=== PATIENT | male | born 1945 | race Hispanic/Latino ===

== ENCOUNTER 2017-11-18 05:39 | Inpatient (IN) | payer MEDICARE, BC ==
[2017-11-18 05:39] VITALS: BMI 31.1
--- NOTE | 2017-11-18 05:59 | C.PDOC ---
- HPI Time Seen by Provider: 11/18/17 05:58 Chief Complaint (Nursing): Trauma Past Medical History Vital Signs: Last Vital Signs Temp 97.6 F 11/18/17 05:49 Pulse 104 H 11/18/17 05:49 Resp 18 11/18/17 05:49 BP 164/71 H 11/18/17 05:49 Pulse Ox 98 11/18/17 05:49 - Medical History PMH: Atrial Fibrillation, Benign Prostatic Hyperplasia, CHF, COPD, HTN, Hypercholesterolemia, Peripheral Edema Denies: Chronic Kidney Disease Surgical History: Pacemaker - [facility] Procedures SPINAL TAP (02/21/15) TETANUS TOXOID ADMINIST (06/20/14) - Social History Hx Tobacco Use: No Hx Alcohol Use: No Hx Substance Use: No - Immunization History Hx Tetanus Toxoid Vaccination: Yes Hx Influenza Vaccination: Yes Hx Pneumococcal Vaccination: No ED Course And Treatment O2 Sat by Pulse Oximetry: 98 Disposition Counseled Patient/Family Regarding: Studies Performed, Diagnosis - Disposition Disposition Time: 05:59
--- NOTE | 2017-11-18 05:59 | C.PDOC ---
History Of Present Illness Patient is a 72 y/o male who presents to the ED by EMS s/p falling on buttock. Patient reports to have been going to the kitchen to get water and fell; patient remembers the entire event and denies LOC. Admits to feeling a little weak prior to falling, but denies feeling any CP, SOB, or palpitations prior. EMS found patient sitting upright in kitchen. No other physical complaints at this time. 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) Current Symptoms Are (Timing): Still Present Severity: Moderate Pain Scale Rating Of: 4 Context: lumbar region Recent travel outside of the [place]: No Past Medical History Reviewed: Historical Data, Nursing Documentation, Vital Signs Vital Signs: Last Vital Signs Temp 97.6 F 11/18/17 05:49 Pulse 116 H 11/18/17 06:10 Resp 26 H 11/18/17 06:10 BP 164/71 H 11/18/17 05:49 Pulse Ox 98 11/18/17 06:20 - Medical History PMH: Atrial Fibrillation, Benign Prostatic Hyperplasia, CHF, COPD, HTN, Hypercholesterolemia, Peripheral Edema Denies: Chronic Kidney Disease Surgical History: No Surg Hx, Pacemaker - [facility] Procedures SPINAL TAP (02/21/15) TETANUS TOXOID ADMINIST (06/20/14) Family History: States: No Known Family Hx - Social History Hx Tobacco Use: No Hx Alcohol Use: No Hx Substance Use: No - Immunization History Hx Tetanus Toxoid Vaccination: Yes Hx Influenza Vaccination: Yes Hx Pneumococcal Vaccination: No Review Of Systems Constitutional: Negative for: Fever, Chills Eyes: Negative for: Vision Change ENT: Negative for: Throat Pain Cardiovascular: Negative for: Chest Pain, Palpitations Respiratory: Negative for: Shortness of Breath Gastrointestinal: Negative for: Nausea, Vomiting Musculoskeletal: Positive for: Back Pain (lumbar region) Skin: Positive for: Rash (both legs) Neurological: Positive for: Weakness (slightly weak before falling), Other (no LOC during/after falling) Psych: Negative for: Anxiety Physical Exam - Physical Exam Appears: Well, Non-toxic, No Acute Distress, Other (AA&Ox3) Skin: Warm, Dry, Other (skin changes due to venous stasis ) Head: Normacephalic Eye(s): bilateral: Normal Inspection Oral Mucosa: Moist Neck: Supple Chest: Symmetrical Cardiovascular: Rhythm Irregular (irregularly irregular), No Murmur, Other ( pacemaker on left ) Respiratory: Normal Breath Sounds, Rales (scattered at bases), No Rhonchi, No Wheezing Gastrointestinal/Abdominal: Soft, No Tenderness, Distention, Other (tympanic to percussion) Back: No CVA Tenderness Extremity: Pedal Edema (chronic, bilaterally ), Other (vascular venous stasis; severe onychomycosis bilaterally) Extremity: Bilateral: Atraumatic Pulses: Left Dorsalis Pedis: Normal, Right Dorsalis Pedis: Normal Neurological/Psych: Oriented x3, Normal Speech, Normal Cognition Gait: Unable To Assess ED Course And Treatment - Laboratory Results Result Diagrams: 11/18/17 06:15 ECG: Interpreted By Me, Viewed By Me ECG Rhythm: Atrial Fibrillation (103), R BBB, Nonspecific Changes O2 Sat by Pulse Oximetry: 98 (room air) Pulse Ox Interpretation: Normal - Radiology CXR: Interpreted by Me, Viewed By Me CXR Interpretation: Yes: Cardiomegaly, Other (chf, pacer on left) Progress Note: Lumbar spine CT, EKG, CXR, and blood work ordered. Disposition Counseled Patient/Family Regarding: Studies Performed, Diagnosis - Disposition Disposition Time: 05:59 Condition: UNKNOWN Forms: [facility] (Japanese) - Clinical Impression Clinical Impression: Fall, CHF (congestive heart failure), Leg edema - Scribe Statement The provider has reviewed the documentation as recorded by the Scribe Romina Ashby All medical record entries made by the Scribe were at my direction and personally dictated by me. I have reviewed the chart and agree that the record accurately reflects my personal performance of the history, physical exam, medical decision making, and the department course for this patient. I have also personally directed, reviewed, and agree with the discharge instructions and disposition. Physician Patient Turnover Patient Signed Over To: Basilio Simmons Handoff Comments: pending labs, ct lumbar and dispo
[2017-11-18 06:19] LABS: BASO # 0.1 K/uL (0.0-0.2); BASO % 1.1 % (0.0-2.0); EOS # 0.1 K/uL (0.0-0.7); EOS % 1.4 % (0.0-4.0); HEMATOCRIT 33.5 % (35.0-51.0); LYMPH # 1.3 K/uL (1.0-4.3); LYMPH % 18.9 % (20.0-40.0); MEAN CELL VOLUME 84.9 fL (80.0-94.0); MEAN CORPUSCULAR HEMOGLOBIN 26.7 pg (27.0-31.0); MEAN CORPUSCULAR HGB CONC 31.4 g/dL (33.0-37.0); MEAN PLATELET VOLUME 8.5 fL (7.2-11.7); MONO % 14.4 % (0.0-10.0); RED CELL DISTRIBUTION WIDTH 18.5 % (11.5-14.5); WHITE BLOOD COUNT 6.8 K/uL (4.8-10.8)
[2017-11-18 06:27] LABS: INR 1.4
[2017-11-18 06:35] LABS: ALB/GLOB RATIO 0.7 (1.0-2.1); BILIRUBIN,TOTAL 0.8 mg/dL (0.2-1.3); CALCIUM 8.3 mg/dl (8.6-10.4); GFR AFRICAN-AMERICAN > 60; GLUCOSE,RANDOM 78 mg/dL (75-110); TOTAL PROTEIN 8.2 g/dL (6.3-8.3)
[2017-11-18 06:55] LABS: ALKALINE PHOSPHATASE 150 U/L (38-126); ALT/SGPT 30 U/L (21-72); AST/SGOT 24 U/L (17-59); BLOOD UREA NITROGEN 20 mg/dL (9-20); CARBON DIOXIDE 31 mmol/L (22-30); CHLORIDE 101 mmol/L (98-107); POTASSIUM 4.6 mmol/L (3.6-5.2); SODIUM 137 mmol/L (132-148)
--- NOTE | 2017-11-18 08:15 | RAD ---
PROCEDURE: CHEST RADIOGRAPH, 1 VIEW HISTORY: SOB COMPARISON: 10/05/2017 FINDINGS: LUNGS: No consolidation PLEURA: No pneumothorax or pleural fluid seen. CARDIOVASCULAR: Cardiomegaly. Position/ configuration of pacemaker Satisfactory. Central pulmonary venous congestion suggested-similar OSSEOUS STRUCTURES: Bilateral shoulder arthrosis VISUALIZED UPPER ABDOMEN: Normal. OTHER FINDINGS: Ventriculoperitoneal shunt catheter projects over right reinier thorax -as before IMPRESSION: Cardiomegaly and mild central pulmonary venous congestion-similar
--- NOTE | 2017-11-18 09:22 | CT ---
PROCEDURE: CT Lumbar Spine without contrast HISTORY: fall COMPARISON: None. TECHNIQUE: Axial computed tomography images were obtained of the lumbar spine without the use of intravenous contrast. Coronal and sagittal reformatted images were created and reviewed. Radiation dose: Total exam DLP = 2062.93 mGy-cm. This CT exam was performed using one or more of the following dose reduction techniques: Automated exposure control, adjustment of the mA and/or kV according to patient size, and/or use of iterative reconstruction technique. FINDINGS: VERTEBRAE: Upper lumbar curvature is slightly straightened. Chronic compression fractures of T11 and L1 are identified which are moderate and severe respectively bladder reiterated compared to the prior chest CT examination dated 09/07/2014. No interval spondylolisthesis or fracture identified at this time. Gross spondylosis appreciated L5-S1 and is less prominent at the remaining lumbar levels. Diffuse osteopenia suggests osteoporosis. The visualized prevertebral paraspinal soft tissues appear diffusely unremarkable. A subtle levoscoliotic lumbar spinal deformity is appreciated. DISCS/SPINAL CANAL/NEURAL FORAMINA: L1-2: A mild central canal stenosis results from a disc osteophyte complex combined with facet joint degenerative arthropathy. Degenerative neural foraminal stenoses are moderate to severe at the right and mild at the left. L2-3: A mild central stenosis results from gross facet joint degenerative arthropathy and limited disc bulging with moderate degenerative bilateral neural foraminal stenosis present. L3-4: A moderate central stenosis results from a disc osteophyte complex combining with prominent facet joint degenerative arthrosis. Moderate bilateral degenerative neural foraminal stenoses are identified. L4-5: An additional moderate central canal stenosis results from disc bulging combining with gross facet joint degenerative arthropathy. Moderate bilateral degenerative neural foraminal stenoses are identify. L5-S1: Facet joint degenerative changes combined with posterior osteophytic ridging encroaching the lateral recesses without generalized central canal stenosis. PARASPINAL SOFT TISSUES: Unremarkable. OTHER FINDINGS: No large right adrenal nodules incidentally identified measuring 5.8 x 3.3 x 4.5 cm not simply changed in size in appearance dating back to 09/07/[address] likely representing a benign adrenal adenoma. It measures 20- 25 Hounsfield units and confirmation MRI is recommended without contrast but including chemical shift to exclude potential malignancy though this is though quite unlikely. IMPRESSION: 1. Multilevel degenerative central canal stenoses are identified which are seen worst at L3-4 and L4-5 for moderate degenerative central canal stenoses are identified. 2. Multilevel degenerative neural foraminal stenoses are also identified. 3. Subtle levoscoliosis of the lumbar spine. 4. Incidental large right adrenal mass up likely representing a benign adrenal adenoma. Follow-up MRI without contrast is advised if not already proven benign.
[2017-11-18] MEDS ORDERED: diltiaZEM 300 mg/24 Hours CD Cap PO SCH (10:30)
[2017-11-18] MEDS: diltiaZEM 300 mg/24 Hours CD Cap PO SCH (17:25)
[2017-11-18] MEDS: Digoxin 250 mcg (0.25 mg) Tab PO SCH (17:25)
[2017-11-18] MEDS: Pantoprazole 20 mg EC Tab PO SCH (17:25)
--- NOTE | 2017-11-18 23:52 | HP ---
HISTORY OF PRESENT ILLNESS: This is a 72-year-old gentleman who was brought in with a history of dizzy spell, fell and hurt his back. He was found to be in rapid AFib also and was admitted. The patient has a longstanding history of COPD, congestive heart failure, atrial fibrillation and several methods tried and has now pacemaker. He has been admitted on several occasions for the similar complaints in the past. EP evaluation has been done and followed up closely by Dr. Bynum. MEDICATIONS AT HOME: Include Cardizem CD 300 mg one a day, digoxin 0.25 mg, Aldactone 25 mg, Crestor 5 mg, Lasix 40 mg, Toprol 100 mg twice a day, Protonix 20 mg, Flomax, Singulair 10 mg and baby aspirin 81 mg. He is also on Pradaxa 150 mg twice a day. Compliance with the medication has been questionable. He has been told several times by social service; however, medications at home he has been poor compliant on several occasions. Medication Lasix he has been taking twice a day. PERSONAL HISTORY: Half a pack per day smoker for more than 30 years. No EtOH abuse. ALLERGIES: DENIED. FAMILY HISTORY: Negative for premature coronary artery disease. . Lives with his and his son. REVIEW OF SYSTEMS: CONSTITUTIONAL: Generalized weakness is noted, moderate to severe fatigue. Able to walk less than a block with the shortness of breath. No dizziness. EYES: No visual disturbances. NECK: No swollen glands. No thyroid enlargement. RESPIRATORY: Cough and wheezing. CARDIAC: Denies any chest pain. Shortness of breath occasionally at rest and on minimal exertion. Edema, hypertension, chronic atrial fibrillation. GASTROINTESTINAL: Negative for abdominal pain. Has had abdominal pain and diverticulitis in the past. Refuses colonoscopy. GENITOURINARY: Negative for hematuria. MUSCULOSKELETAL: Positive for arthritis and knee pains. VASCULAR SYSTEM: No history of DVT. NEUROLOGICAL: No TIAs. No CVAs. Memory loss is noted. PAST MEDICAL HISTORY: Admitted of multiple occasions for congestive heart failure, atrial fibrillation, has a permanent pacemaker. PHYSICAL EXAMINATION: GENERAL: Elderly gentleman, who is conscious, alert, well-oriented, chronically sick-looking, in no acute distress. VITAL SIGNS: He is 6 feet and weighs about 200 pounds. His blood pressure is 122/70, heart rate of 120 and irregular, respiratory rate of 24, temperature of 97. HEENT: Mouth is normocephalic. Complete dentures. NECK: Supple. No thyroid enlargement. LUNGS: Shows coarse rhonchi all over the lung marin. CARDIAC: PMI is not localized. Heart sounds are distant and tachycardic. No definite gallops or murmurs. ABDOMEN: Soft, nontender. EXTREMITIES: No cyanosis or clubbing. 1+ edema. All nails are and poor hygiene on the foot. Distal pulses could not be felt. NEUROLOGICALLY: The patient is awake, alert and oriented x3. LABORATORY DATA: Workup in the ER which was discussed with the ER physician: CT of the head was unremarkable. Osteoporosis and arthritic changes in the lumbar spine, but no fracture. EKG had rapid AFib. Chest x-ray had congestion. IMPRESSION: At this point, the patient is admitted for rapid atrial fibrillation and mild congestive heart failure. PLAN: Plan is to continue with the p.o. medication, may need IV Cardizem. Podiatry consult as needed. Slade Mcintyre MD
[2017-11-19] MEDS: Pantoprazole 20 mg EC Tab PO SCH (09:55)
[2017-11-19] MEDS: diltiaZEM 300 mg/24 Hours CD Cap PO SCH (09:55)
--- NOTE | 2017-11-19 10:52 | CP.PCM.PN ---
Subjective - Date & Time of Evaluation Date of Evaluation: 11/19/17 Time of Evaluation: 10:30 - Subjective Subjective: Patient was seen at bedside along with resident Dr Magaly Du who will be dictating the consultation. Patient has severe onychogryphosis of both feet and has been unable to wear closed shoes due to the pain caused by the shoes. He has PVD with resolving edema of both lower extremeties which has left his skin very dry on his feet and lower legs to the point that he is having some fissuring of the skin. We will be debriding all 10 of his grossly deformed, thickened and mycotic toenails and will be ordering a moisturizer for his skin. Than you for allowing us to be part of the care of your patient. Objective - Vital Signs/Intake and Output Vital Signs (last 24 hours): Temp Pulse Resp BP Pulse Ox 97.9 F 76 20 102/64 96 11/19/17 07:49 11/19/17 09:52 11/19/17 07:49 11/19/17 09:52 11/19/17 07:49 Intake and Output: 11/19/17 11/19/17 06:59 18:59 Intake Total 240 Balance 240 - Medications Medications: Current Medications Aspirin (Ecotrin) 81 mg PO DAILY [facility] Last Admin: 11/19/17 09:55 Dose: 81 mg Dabigatran (Pradaxa) 150 mg PO BID [facility] Last Admin: 11/19/17 09:55 Dose: 150 mg Digoxin (Lanoxin) 0.25 mg PO DAILY@1800 [facility] Last Admin: 11/18/17 17:25 Dose: 0.25 mg Diltiazem HCl (Cardizem Cd) 300 mg PO DAILY [facility] Last Admin: 11/19/17 09:55 Dose: 300 mg Finasteride (Proscar) 5 mg PO DAILY [facility] Last Admin: 11/19/17 09:55 Dose: 5 mg Metoprolol Tartrate (Lopressor) 100 mg PO BID [facility] Last Admin: 11/19/17 09:55 Dose: 100 mg Montelukast Sodium (Singulair) 10 mg PO QPM [facility] Last Admin: 11/18/17 17:26 Dose: 10 mg Pantoprazole Sodium (Protonix Ec Tab) 20 mg PO DAILY [facility] Last Admin: 11/19/17 09:55 Dose: 20 mg Pneumococcal Polyvalent Vaccine (Pneumovax 23 Vaccine) 0.5 ml IM .ONCE ONE Stop: 11/21/17 10:01 Rosuvastatin Calcium (Crestor) 5 mg PO [facility] Last Admin: 11/18/17 21:57 Dose: 5 mg Spironolactone (Aldactone) 25 mg PO DAILY [facility] Last Admin: 11/19/17 09:55 Dose: 25 mg Tamsulosin HCl (Flomax) 0.4 mg PO DAILY [facility] Last Admin: 11/19/17 09:55 Dose: 0.4 mg - Labs Labs: 11/18/17 06:15 11/18/17 06:15 PT 16.0 SECONDS (9.7-12.2) H 11/18/17 06:15 INR 1.4 11/18/17 06:15 APTT 43 SECONDS (21-34) H 11/18/17 06:15
--- NOTE | 2017-11-19 11:29 | CP.PCM.CON ---
History of Present Illness - History of Present Illness History of Present Illness: Podiatry Consult note for Dr. Krishnan 70 year old male with PMHx including afib, BPH, CHF, COPD, HTN, HLD was seen at bedside with attending, Dr. Krishnan. Patient states that he is unable to trim his nails as they are very long and can no longer wear closed toed shoes because of it. He admits that his skin is very dry. He states that he legs used to be swollen but have come down in size. Currently denies any n/v/f/c/sob /cp. Past Patient History - Past Medical History & Family History Past Medical History?: Yes - Past Social History Smoking Status: Light Smoker < 10 Cigarettes Daily - CARDIAC Hx Atrial Fibrillation: Yes Hx Congestive Heart Failure: Yes Hx Hypercholesterolemia: Yes Hx Hypertension: Yes Hx Pacemaker: Yes Hx Peripheral Edema: Yes - PULMONARY Hx Chronic Obstructive Pulmonary Disease (COPD): Yes - NEUROLOGICAL Hx Neurological Disorder: No - HEENT Hx HEENT Problems: Yes Hx Cataracts: Yes (cataract surgery 2011) Other/Comment: Pt denies cataract surgery - RENAL Hx Chronic Kidney Disease: No - ENDOCRINE/METABOLIC Hx Endocrine Disorders: No - HEMATOLOGICAL/ONCOLOGICAL Hx Blood Disorders: No - INTEGUMENTARY Hx Dermatological Problems: No - MUSCULOSKELETAL/RHEUMATOLOGICAL Hx Musculoskeletal Disorders: Yes Hx Falls: Yes Hx Unsteady Gait: Yes - GASTROINTESTINAL Hx Gastrointestinal Disorders: No - GENITOURINARY/GYNECOLOGICAL Hx Genitourinary Disorders: Yes Hx Prostate Cancer: Yes (BPH) - PSYCHIATRIC Hx Substance Use: No - SURGICAL HISTORY Hx Surgeries: Yes Hx Orthopedic Surgery: Yes (LEFT HIP; LEFT KNEE) Other/Comment: cataract surgery - ANESTHESIA Hx Anesthesia: Yes Hx Anesthesia Reactions: No Meds Allergies/Adverse Reactions: Allergies Allergy/AdvReac Type Severity Reaction Status Date / Time No Known Allergies Allergy Verified 11/18/17 05:54 - Medications Medications: Current Medications Aspirin (Ecotrin) 81 mg PO DAILY [facility] Last Admin: 11/19/17 09:55 Dose: 81 mg Dabigatran (Pradaxa) 150 mg PO BID [facility] Last Admin: 11/19/17 09:55 Dose: 150 mg Digoxin (Lanoxin) 0.25 mg PO DAILY@1800 [facility] Last Admin: 11/18/17 17:25 Dose: 0.25 mg Diltiazem HCl (Cardizem Cd) 300 mg PO DAILY [facility] Last Admin: 12/20/17 09:55 Dose: 300 mg Finasteride (Proscar) 5 mg PO DAILY [facility] Last Admin: 11/19/17 09:55 Dose: 5 mg Lactic Acid (Lac-Hydrin 12% Lotion (225 G)) 2 gm EXT BID [facility] Metoprolol Tartrate (Lopressor) 100 mg PO BID [facility] Last Admin: 11/19/17 09:55 Dose: 100 mg Montelukast Sodium (Singulair) 10 mg PO QPM [facility] Last Admin: 11/18/17 17:26 Dose: 10 mg Pantoprazole Sodium (Protonix Ec Tab) 20 mg PO DAILY [facility] Last Admin: 11/19/17 09:55 Dose: 20 mg Pneumococcal Polyvalent Vaccine (Pneumovax 23 Vaccine) 0.5 ml IM .ONCE ONE Stop: 11/21/17 10:01 Rosuvastatin Calcium (Crestor) 5 mg PO HS [facility] Last Admin: 11/18/17 21:57 Dose: 5 mg Spironolactone (Aldactone) 25 mg PO DAILY [facility] Last Admin: 11/19/17 09:55 Dose: 25 mg Tamsulosin HCl (Flomax) 0.4 mg PO DAILY [facility] Last Admin: 11/19/17 09:55 Dose: 0.4 mg Physical Exam - Constitutional Appears: Well, Non-toxic, No Acute Distress - Extremities Exam Additional comments: lower extremity focused exam: Vasc: Dp and PT pulses non-palpable b/l. CFT < 4 seconds to all digits b/l. Skin temperature warm to warm from proximal to distal b/l. Ortho: Tenderness on palpation to digits 1-10 Neuro: Gross sensation intact b/l Derm: Nails 1-10 are thickened, elongated, incurvated, dystrophic, discolored, with subungular debris. Debris also noted to webpaces 1-4 b/l. Lichenification noted to lower extremies. No open lesions noted, no drainage. - Neurological Exam Neurological exam: Alert, Oriented x3 - Psychiatric Exam Psychiatric exam: Normal Affect, Normal Mood Results - Vital Signs Recent Vital Signs: Last Vital Signs Temp 97.9 F 11/19/17 07:49 Pulse 76 11/19/17 09:52 Resp 20 11/19/17 07:49 BP 102/64 11/19/17 09:52 Pulse Ox 96 11/19/17 07:49 - Labs Result Diagrams: 11/18/17 06:15 11/18/17 06:15 Labs: Laboratory Results - last 24 hr 11/18/17 11/19/17 20:51 06:11 POC Glucose (mg/dL) 96 75 Assessment & Plan - Assessment and Plan (Free Text) Assessment: 72 year old male with PVD and onychographosis Plan: patient examined and evaluated with attending, Dr. Krishnan chart, labs, vitals reviewed nails 1-10 were sharply debrided in thickness and in lenght without incident lotion applied to LE b/l lac-hydrin ordered, to be applied to LE BID podiatry will continue to follow patient while in house
--- NOTE | 2017-11-19 12:40 | CP.PCM.PN ---
Subjective - Date & Time of Evaluation Date of Evaluation: 11/19/17 Time of Evaluation: 12:39 - Subjective Subjective: sob & hr better.seen by dr vang. Objective - Vital Signs/Intake and Output Vital Signs (last 24 hours): Temp Pulse Resp BP Pulse Ox 97.9 F 76 20 102/64 96 11/19/17 07:49 11/19/17 09:52 11/19/17 07:49 11/19/17 09:52 11/19/17 07:49 Intake and Output: 11/19/17 11/19/17 06:59 18:59 Intake Total 240 Balance 240 - Medications Medications: Current Medications Aspirin (Ecotrin) 81 mg PO DAILY [facility] Last Admin: 11/19/17 09:55 Dose: 81 mg Dabigatran (Pradaxa) 150 mg PO BID [facility] Last Admin: 11/19/17 09:55 Dose: 150 mg Digoxin (Lanoxin) 0.25 mg PO DAILY@1800 [facility] Last Admin: 11/18/17 17:25 Dose: 0.25 mg Diltiazem HCl (Cardizem Cd) 300 mg PO DAILY [facility] Last Admin: 11/19/17 09:55 Dose: 300 mg Finasteride (Proscar) 5 mg PO DAILY [facility] Last Admin: 11/19/17 09:55 Dose: 5 mg Lactic Acid (Lac-Hydrin 12% Lotion (225 G)) 0 gm EXT BID [facility] Metoprolol Tartrate (Lopressor) 100 mg PO BID [facility] Last Admin: 11/19/17 09:55 Dose: 100 mg Montelukast Sodium (Singulair) 10 mg PO QPM [facility] Last Admin: 11/18/17 17:26 Dose: 10 mg Pantoprazole Sodium (Protonix Ec Tab) 20 mg PO DAILY [facility] Last Admin: 11/19/17 09:55 Dose: 20 mg Pneumococcal Polyvalent Vaccine (Pneumovax 23 Vaccine) 0.5 ml IM .ONCE ONE Stop: 11/21/17 10:01 Rosuvastatin Calcium (Crestor) 5 mg PO HS [facility] Last Admin: 11/18/17 21:57 Dose: 5 mg Spironolactone (Aldactone) 25 mg PO DAILY [facility] Last Admin: 11/19/17 09:55 Dose: 25 mg Tamsulosin HCl (Flomax) 0.4 mg PO DAILY [facility] Last Admin: 11/19/17 09:55 Dose: 0.4 mg - Labs Labs: 11/18/17 06:15 11/18/17 06:15 PT 16.0 SECONDS (9.7-12.2) H 11/18/17 06:15 INR 1.4 11/18/17 06:15 APTT 43 SECONDS (21-34) H 11/18/17 06:15 - Constitutional Appears: No Acute Distress, Chronically Ill - Eye Exam Eye Exam: Normal appearance - Respiratory Exam Respiratory Exam: Rhonchi - Cardiovascular Exam Cardiovascular Exam: Irregular Rhythm - GI/Abdominal Exam GI & Abdominal Exam: Soft - Extremities Exam Extremities Exam: Pedal Edema - Neurological Exam Neurological Exam: Alert, Oriented x3 Assessment and Plan - Assessment and Plan (Free Text) Assessment: chf & rapid a.fib both better.labs noted.phy therapy.
[2017-11-19] MEDS: Digoxin 250 mcg (0.25 mg) Tab PO SCH (17:31)
[2017-11-19] MEDS: Ammonium Lactate 12% Lotion (225 g) EXT SCH (17:32)
--- NOTE | 2017-11-19 23:41 | CARD ---
APPROVED REPORT EKG Measurement Heart [id number] <Conclusion> Atrial fibrillation with rapid ventricular response Left axis deviation Right bundle branch block Abnormal ECG
[2017-11-20 07:46] LABS: CALCIUM 8.2 mg/dl (8.6-10.4)
[2017-11-20] MEDS: Pantoprazole 20 mg EC Tab PO SCH (09:58)
[2017-11-20] MEDS: diltiaZEM 300 mg/24 Hours CD Cap PO SCH (09:58)
[2017-11-20] MEDS: Ammonium Lactate 12% Lotion (225 g) EXT SCH ×2 (10:08→17:08)
[2017-11-20] MEDS: Digoxin 250 mcg (0.25 mg) Tab PO SCH (17:07)
[2017-11-21 08:15] VITALS: RESP 20
[2017-11-21] MEDS ORDERED: Pneumococcal 23-Valent Vaccine IM ONE (10:00)
[2017-11-21] MEDS ORDERED: Influenza Vaccine 60 mcg/0.5 mL SYR (4YR UP) IM ONE ×2 (10:00→17:30)
[2017-11-21] MEDS: Pantoprazole 20 mg EC Tab PO SCH (10:36)
[2017-11-21] MEDS: diltiaZEM 300 mg/24 Hours CD Cap PO SCH (10:36)
[2017-11-21] MEDS: Ammonium Lactate 12% Lotion (225 g) EXT SCH ×2 (10:39→17:27)
--- NOTE | 2017-11-21 12:45 | CP.PCM.PN ---
Subjective - Date & Time of Evaluation Date of Evaluation: 11/21/17 Time of Evaluation: 12:45 - Subjective Subjective: Podiatry Progress note for Dr. Mcintyre 72 year old male was seen resting comfortably at bedside. He states that his legs feel better since the cream has been applied. NAD, AA)x3. Currently denies any n/v/f/c/sob/cp. Objective - Vital Signs/Intake and Output Vital Signs (last 24 hours): Temp Pulse Resp BP Pulse Ox 97.4 F L 77 20 112/62 94 L 11/21/17 08:11 11/21/17 08:11 11/21/17 08:11 11/21/17 10:36 11/21/17 08:11 Intake and Output: 11/21/17 11/21/17 06:59 18:59 Intake Total 450 Balance 450 - Medications Medications: Current Medications Aspirin (Ecotrin) 81 mg PO DAILY [facility] Last Admin: 11/21/17 10:36 Dose: 81 mg Dabigatran (Pradaxa) 150 mg PO BID [facility] Last Admin: 11/21/17 10:36 Dose: 150 mg Digoxin (Lanoxin) 0.25 mg PO DAILY@1800 [facility] Last Admin: 11/20/17 17:07 Dose: 0.25 mg Diltiazem HCl (Cardizem Cd) 300 mg PO DAILY [facility] Last Admin: 11/21/17 10:36 Dose: 300 mg Finasteride (Proscar) 5 mg PO DAILY [facility] Last Admin: 11/21/17 10:36 Dose: 5 mg Furosemide (Lasix) 40 mg PO DAILY [facility] Last Admin: 11/21/17 10:36 Dose: 40 mg Lactic Acid (Lac-Hydrin 12% Lotion (225 G)) 0 gm EXT BID [facility] Last Admin: 11/21/17 10:39 Dose: 1 applic Metoprolol Tartrate (Lopressor) 100 mg PO BID [facility] Last Admin: 11/21/17 10:36 Dose: 100 mg Montelukast Sodium (Singulair) 10 mg PO QPM [facility] Last Admin: 11/20/17 17:07 Dose: 10 mg Pantoprazole Sodium (Protonix Ec Tab) 20 mg PO DAILY [facility] Last Admin: 11/21/17 10:36 Dose: 20 mg Rosuvastatin Calcium (Crestor) 5 mg PO HS [facility] Last Admin: 11/20/17 21:05 Dose: 5 mg Spironolactone (Aldactone) 25 mg PO MWF [facility] Last Admin: 11/21/17 09:05 Dose: 25 mg Tamsulosin HCl (Flomax) 0.4 mg PO DAILY [facility] Last Admin: 11/21/17 10:36 Dose: 0.4 mg - Labs Labs: 11/18/17 06:15 11/20/17 07:17 PT 16.0 SECONDS (9.7-12.2) H 11/18/17 06:15 INR 1.4 11/18/17 06:15 APTT 43 SECONDS (21-34) H 11/18/17 06:15 - Constitutional Appears: Well, Non-toxic, No Acute Distress - Extremities Exam Additional comments: lower extremity focused exam: Vasc: DP and PT pulses non-palpable b/l. CFT < 4 seconds to all digits b/l. Skin temperature warm to warm from proximal to distal b/l. Ortho: Tenderness on palpation to digits 1-10 Neuro: Gross sensation intact b/l Derm: Nails 1-10 are trimmed to hygienic length. Webspaces 1-4 b/l are clean, dry, intact Lichenification noted to lower extremies- improving. No open lesions noted, no drainage. - Neurological Exam Neurological Exam: Alert, Awake, Oriented x3 - Psychiatric Exam Psychiatric exam: Normal Affect, Normal Mood Assessment and Plan - Assessment and Plan (Free Text) Assessment: 72 year old male with PVD and xerotic skin to bilateral lower extremities Plan: patient examined and evaluated discussed with attending, Dr. Mcintyre chart, labs, vitals reviewed;afebrile lac-hydrin to continue to be applied to LE b/l BID podiatry will continue to follow patient while in house patient to follow up with Dr. Mcintyre as out patient
--- NOTE | 2017-11-21 12:47 | CP.PCM.PN ---
Subjective - Date & Time of Evaluation Date of Evaluation: 11/21/17 Time of Evaluation: 12:47 - Subjective Subjective: PATIENT WAS ADMITTED FOR CHF; AFIB; FALL. AAOX3 DENIES ANY CHEST PAIN; NAUSEA VOMITING OR SOB; LAY DOWN IN BED NO SIGN OF DISTRESS NOTED Objective - Vital Signs/Intake and Output Vital Signs (last 24 hours): Temp Pulse Resp BP Pulse Ox 97.4 F L 77 20 112/62 94 L 11/21/17 08:11 11/21/17 08:11 11/21/17 08:11 11/21/17 10:36 11/21/17 08:11 Intake and Output: 11/21/17 11/21/17 06:59 18:59 Intake Total 450 Balance 450 - Medications Medications: Current Medications Aspirin (Ecotrin) 81 mg PO DAILY [facility] Last Admin: 11/21/17 10:36 Dose: 81 mg Dabigatran (Pradaxa) 150 mg PO BID [facility] Last Admin: 11/21/17 10:36 Dose: 150 mg Digoxin (Lanoxin) 0.25 mg PO DAILY@1800 [facility] Last Admin: 11/20/17 17:07 Dose: 0.25 mg Diltiazem HCl (Cardizem Cd) 300 mg PO DAILY [facility] Last Admin: 11/21/17 10:36 Dose: 300 mg Finasteride (Proscar) 5 mg PO DAILY [facility] Last Admin: 11/21/17 10:36 Dose: 5 mg Furosemide (Lasix) 40 mg PO DAILY [facility] Last Admin: 11/21/17 10:36 Dose: 40 mg Lactic Acid (Lac-Hydrin 12% Lotion (225 G)) 0 gm EXT BID [facility] Last Admin: 11/21/17 10:39 Dose: 1 applic Metoprolol Tartrate (Lopressor) 100 mg PO BID [facility] Last Admin: 11/21/17 10:36 Dose: 100 mg Montelukast Sodium (Singulair) 10 mg PO QPM [facility] Last Admin: 11/20/17 17:07 Dose: 10 mg Pantoprazole Sodium (Protonix Ec Tab) 20 mg PO DAILY [facility] Last Admin: 11/21/17 10:36 Dose: 20 mg Rosuvastatin Calcium (Crestor) 5 mg PO HS [facility] Last Admin: 11/20/17 21:05 Dose: 5 mg Spironolactone (Aldactone) 25 mg PO MWF [facility] Last Admin: 11/21/17 09:05 Dose: 25 mg Tamsulosin HCl (Flomax) 0.4 mg PO DAILY [facility] Last Admin: 11/21/17 10:36 Dose: 0.4 mg - Labs Labs: 11/18/17 06:15 11/20/17 07:17 PT 16.0 SECONDS (9.7-12.2) H 11/18/17 06:15 INR 1.4 11/18/17 06:15 APTT 43 SECONDS (21-34) H 11/18/17 06:15 - Constitutional Appears: Well - Respiratory Exam Respiratory Exam: Clear to Ausculation Bilateral - Cardiovascular Exam Cardiovascular Exam: +S1, +S2 Assessment and Plan - Assessment and Plan (Free Text) Assessment: A/P PATIENT IS SEEN AND EXAMINED AT THE BEDSIDE; DISCUSS WITH DR HERMAN WHO CLEAR PATIENT FOR D/C PLACE UNDER SERVICE OF DR BOUDREAUX WHILE IN [facility] ---CALL HIM UPON ARRIVAL FOR ADMITTING ORDER IN THE FACILITY AND BED ASSIGNMENT CONTINUE MEDICATIONS PER THE MED REC FORM --CHANGE CAN BE MADE BY DR BOUDREAUX NEW RX LAC-HYDRIN TO BE APPLY BID TO LE PHYSICAL THERAPY ORDER (3-5 TIMES PER WEEK FOR 2 WEEKS) AND FACILITY PROTOCOL FOOT CARE ORDER AND FACILITY PROTOCOL F/U WITH BOOM CAT OPERATOR AT THE FACILITY FOR FURTHER ORDER FOR FURTHER ORDER OR CONCERNS CONTACT DR BOUDREAUX DISCUSS WITH PATIENT WHO AGREE AND VERBALIZED UNDERSTANDING
--- NOTE | 2017-11-21 14:47 | DS ---
HISTORY OF PRESENT ILLNESS: The patient is being transferred to rehab today, 11/21/2017. A 72-year-old gentleman who was brought in with a congestive heart failure, rapid AFib, also he had a fall. X-rays were negative for fracture. Physical therapy was given. Medications were resumed without any change except IV Lasix. He is stable now to be discharged to rehab under Dr. Hammond at [facility]. There is no change in the medication. Same medication will be continued. Routine labs were acceptable. Plan of care was explained to the patient and his . He is on Aldactone 25 mg Friday, Friday, Friday; Cardizem 300 one a day; Crestor 5 mg; aspirin; Flomax; digoxin 0.25; Lasix 40 mg one a day; metoprolol tartrate 100 mg twice a day; Pradaxa 150 twice a day; Proscar; Protonix 20 mg; Singulair 10 mg. He has a pacemaker. He is being followed by Dr. Aceves. He has done well. FINAL DIAGNOSES: Congestive heart failure, rapid atrial fibrillation, multiple joints pains, chronic obstructive pulmonary disease. Slade Mcintyre MD
--- NOTE | 2017-11-21 14:47 | PCM.HF ---
Heart Failure Core Measure - Heart Failure Ejection Fraction: 40 % or Greater JOSETTE Inhibitor Prescribed: No Contraindication/Reason for not providing: BLOOD PRESSURE ON THE LOW SIDE Beta-Garland Prescribed: Metoprolol Succinate Angiotensin II Receptor Gar[place] Prescribed: No Contraindication/Reason for not providing: BLOOD PRESSURE ON THE LOW SIDE AnticoagulationTherapy for Atrial Fibrillation/Atrialflutter: Yes Aldosterone Antagonist Prescribed: No Contraindication/Reason for not providing: BLOOD PRESSURE ON THE LOW SIDE Hydralazine Nitrate Prescribed: No Contraindication/Reason for not providing: BLOOD PRESSURE ON THE LOW SIDE Implantable Cardioverter Defibrillator Therapy: Yes Cardiac Resynchronization Therapy Prescribed: No Contraindication/Reason for not providing: NOT INDICATED - Follow up Will be discharged to: [facility] Facility Follow Up Date (must be within 7 days from discharge): 11/27/17 Follow Up Time: 09:00
[2017-11-21 16:02] VITALS: BP 106/64; TEMP 98.4; O2SAT 93
[2017-11-21 16:18] VITALS: PULSE 72
[2017-11-21] MEDS: Digoxin 250 mcg (0.25 mg) Tab PO SCH (17:20)
[2017-11-21 17:22] VITALS: PULSE 72
== END 2017-11-21 19:35 | DRG 293 ==
LOC: C.ER 05:39 → C.9E 10:05 → C.5S 12:18
PROVIDERS: ADMIT Internal Medicine Cardiovascular Disease; ATTEND Internal Medicine Cardiovascular Disease
DX: I11.0 Hypertensive heart disease with heart failure (principal); J44.9 Chronic obstructive pulmonary disease, unspecified; I48.91 Unspecified atrial fibrillation; I73.9 Peripheral vascular disease, unspecified; I50.9 Heart failure, unspecified; N40.0 Benign prostatic hyperplasia without lower urinary tract symptoms; E78.5 Hyperlipidemia, unspecified; F17.210 Nicotine dependence, cigarettes, uncomplicated; E78.00 Pure hypercholesterolemia, unspecified; M25.50 Pain in unspecified joint; Z95.0 Presence of cardiac pacemaker

== ENCOUNTER 2019-04-21 10:06 | Inpatient (IN) | payer MEDICARE, OTHER | END 2019-04-23 19:05 | LOC: C.ER 10:06 → C.SDS 11:00 → C.9E 14:12 → C.5S 17:07 ==